=== PATIENT | female | born 1965 | race Caucasian/White ===

== ENCOUNTER 2019-01-05 15:21 | Emergency (ER) | payer MEDICARE, MEDICAID ==
[~2019-01-05] VITALS: Ht 162.6 cm; Wt 55.7 kg
[~2019-01-05 15:21] MED LIST: ACID1TAB3 PO; AMOX1TAB12 PO; CLON0.5T11 PO; CYCL-259 PO; DIAZ2TAB3 PO; DIAZ5TAB4 PO; DULO60CA7 PO; GABA600T7 PO; HYDR-3307 PO; LISI-167 PO; LISI-466 PO; LISI5TAB7 PO; MIRT15TA4 PO; OXYC1TAB7 PO; PRAZ2CAP2 PO; TRAZ50TA66 PO; antibiotic PO
[2019-01-05 15:40] VITALS: BP 134/95
[2019-01-05] MEDS ORDERED: METHOCARBAMOL 750 MG TABLET PO ONE (16:30)
[2019-01-05] MEDS ORDERED: KETOROLAC 30 MG/1 ML IM ONE (16:30)
[2019-01-05] MEDS ORDERED: METHOCARBAMOL 750 MG TABLET ONE (16:32)
[2019-01-05] MEDS ORDERED: KETOROLAC 30 MG/1 ML ONE (16:32)
--- NOTE | 2019-01-05 16:45 | NUR ---
Patient/Caregiver given discharge instructions and they have confirmed that they understand the instructions. Patient ambulatory with steady gait.
== END 2019-01-05 16:46 | disposition home or self-care (01) ==
LOC: ED 16:19
DX: S46.812A Strain of other muscles, fascia and tendons at shoulder and upper arm level, left arm, initial encounter (principal); S46.811A Strain of other muscles, fascia and tendons at shoulder and upper arm level, right arm, initial encounter; I10 Essential (primary) hypertension; X58.XXXA Exposure to other specified factors, initial encounter; Y93.89 Activity, other specified; Y92.89 Other specified places as the place of occurrence of the external cause; Y99.8 Other external cause status
CPT/HCPCS: 96372; 99283; J1885

== ENCOUNTER 2020-05-19 09:35 | Emergency (ER) | payer MEDICARE, MEDICAID ==
[~2020-05-19] VITALS: Ht 162.6 cm; Wt 52.0 kg
[~2020-05-19 09:35] MED LIST changes: +CLON-364 PO; -CLON0.5T11 PO; +HYDR-3246 PO; -HYDR-3307 PO; +MIRT-34 PO; -MIRT15TA4 PO
[2020-05-19 09:39] VITALS: BP 138/81
--- NOTE | 2020-05-19 09:53 | NUR ---
pt changed into a hospital gown and sitting at the bedside awaiting an md to assess.
--- NOTE | 2020-05-19 09:59 | NUR ---
md is at the bedside for assessment
--- NOTE | 2020-05-19 10:19 | NUR ---
PT TO CT W TECH
== END 2020-05-19 10:50 | disposition home or self-care (01) ==
LOC: ED 10:44
DX: M54.12 Radiculopathy, cervical region (principal); I10 Essential (primary) hypertension
CPT/HCPCS: 72125; 99284

== ENCOUNTER 2020-06-09 12:44 | Emergency (ER) | payer MEDICARE, MEDICAID ==
[~2020-06-09] VITALS: Ht 162.6 cm; Wt 51.5 kg
--- NOTE | 2020-06-09 13:19 | NUR ---
BEDSIDE REPORT TO BREANNA HANDY.
--- NOTE | 2020-06-09 13:21 | NUR ---
REPORT RECEIVED FROM BREANNA STONE. PT CURRENTLY RESTING ON [employer]. NO ACUTE DISTRESS NOTED AT THIS TIME. PT AWARE WE ARE WAITING FOR IMAGING RESULTS. CALL LIGHT WITHIN REACH. WILL CONT TO MONITOR PT.
[2020-06-09] MEDS ORDERED: KETOROLAC 30 MG/1 ML IM ONE (13:30)
[2020-06-09] MEDS ORDERED: KETOROLAC 60 MG/2 ML ONE (13:37)
[2020-06-09 14:12] VITALS: BP 119/70
--- NOTE | 2020-06-09 14:12 | NUR ---
PT TOLERATED MEDICATION WELL. DISUSSED DC PAPERWORK. PT VERBALIZED UNDERSTANDING. STEADY UPON AMBULATION TO DC DESK.
== END 2020-06-09 14:14 | disposition home or self-care (01) ==
LOC: ED 13:29
DX: G44.219 Episodic tension-type headache, not intractable (principal); M54.2 Cervicalgia; M79.644 Pain in right finger(s); I10 Essential (primary) hypertension; F17.200 Nicotine dependence, unspecified, uncomplicated
CPT/HCPCS: 96372; 99283; J1885

== ENCOUNTER 2020-06-12 19:36 | Emergency (ER) | payer MEDICARE, MEDICAID ==
[~2020-06-12] VITALS: Ht 162.6 cm; Wt 53.4 kg
[2020-06-12 19:46] VITALS: BP 92/53
--- NOTE | 2020-06-12 19:54 | NUR ---
[facility] SERVICE MANAGER: EKG DONE IN TRIAGE
--- NOTE | 2020-06-12 21:13 | NUR ---
THIS TECH DID EKG
--- NOTE | 2020-06-12 21:41 | NUR ---
NIL X 1
--- NOTE | 2020-06-12 21:55 | NUR ---
PT SIGNED AMA
== END 2020-06-12 21:57 ==
LOC: ED 21:44
DX: R20.2 Paresthesia of skin (principal); M54.2 Cervicalgia; Z53.21 Procedure and treatment not carried out due to patient leaving prior to being seen by health care provider
CPT/HCPCS: 93005

== ENCOUNTER 2021-03-13 10:55 | Emergency (ER) | payer MEDICARE, MEDICAID ==
[~2021-03-13] VITALS: Ht 162.6 cm; Wt 52.3 kg
[~2021-03-13 10:55] MED LIST changes: -CYCL-259 PO; +CYCL10TA2 PO; -HYDR-3246 PO; +HYDR-3248 PO
[2021-03-13 11:22] VITALS: BP 124/66
[2021-03-13] MEDS ORDERED: KETOROLAC 30 MG/1 ML ONE (11:28)
[2021-03-13] MEDS ORDERED: KETOROLAC 30 MG/1 ML IM ONE (11:30)
--- NOTE | 2021-03-13 13:31 | NUR ---
Patient given discharge instructions and they have confirmed that they understand the instructions. Patient ambulatory with steady gait.
== END 2021-03-13 12:29 | disposition home or self-care (01) ==
LOC: ED 12:20
DX: G89.29 Other chronic pain (principal); M25.512 Pain in left shoulder; M25.511 Pain in right shoulder
CPT/HCPCS: 73030; 96372; 99283; J1885